=== PATIENT | female | born 1955 | race Caucasian/White ===

== ENCOUNTER 2021-04-04 08:18 | Outpatient (CLI) | payer OTHER | END 2021-04-04 23:59 | disposition home or self-care (01) | LOC: LAB 08:18 | PROVIDERS: ATTEND Specialist | DX: Z01.812 Encounter for preprocedural laboratory examination (principal); Z20.822 Contact with and (suspected) exposure to COVID-19 | CPT/HCPCS: C9803; U0003 ==

== ENCOUNTER 2021-04-10 04:42 | Inpatient (IN) | payer OTHER ==
[~2021-04-10] VITALS: Ht 160 cm; Wt 101.7 kg
[~2021-04-10 04:42] MED LIST: BUPIVACAINE 0.25% 75 MG/30 ML VIAL INFIL ONE; EPINEPHRINE (1:10,000) SYRINGE 1 MG/10 ML DISP.SYRIN IVP ONE
[2021-04-10 05:30] VITALS: BP 142/66
--- NOTE | 2021-04-10 05:30 | NUR ---
MSRN CAME FROM ADMITTING A 66 Y/O FEMALE FOR LEFT TOTAL KNEE ARTHROPLASTY TODAY BY DR. MICHEL. ALERT AND ORIENT X 4. LEVEL 4 PAIN ON LEFT KNEE. HAS BEEN NPO SINCE MIDNIGHT. VERY PLEASANT, ABLE TO PROVIDE HISTORY. SEEN BY DR ARMENTA AND DISCUSSED PAIN MGT. SEEN ALSO BY ANESTHESIOLOGIST . ALL CONSENTS SIGNED. ORIENTED TO [facility], PREOP TEACHING DONE.
[2021-04-10] MEDS ORDERED: ANESTHESIA TRAY IN PYXIS 1 EA TRAY MC ONE (05:49)
[2021-04-10] MEDS ORDERED: BUPIVACAINE 0.5 % PF 150 MG/30 ML VIAL ONE (05:49)
[2021-04-10] MEDS ORDERED: TRANEXAMIC ACID 3,000 MG in SODIUM CHLORIDE IRRIG SOLUTION 70 ML IR ONE (06:00)
--- NOTE | 2021-04-10 06:00 | NUR ---
MSRN OFF THE FLOOR TO OR VIA BED. OR TO START IV ACCESS.
[2021-04-10] MEDS ORDERED: HYDROMORPHONE INJ 2 MG/ML DISP.SYRIN ONE (06:17)
[2021-04-10] MEDS ORDERED: FENTANYL PF 250MCG/5ML AMPUL ONE (06:17)
[2021-04-10] MEDS ORDERED: MIDAZOLAM HCL 2 MG/2ML VIAL ONE (06:17)
[2021-04-10] MEDS ORDERED: SUCCINYLCHOLINE CHLORIDE 20 MG/ML VIAL ONE (06:18)
[2021-04-10] MEDS ORDERED: FAMOTIDINE/PF INJ 20 MG/2 ML VIAL IV ONE (06:18)
[2021-04-10] MEDS ORDERED: CLINDAMYCIN PHOSPHATE IV 600 MG/4 ML VIAL ONE (06:19)
[2021-04-10] MEDS ORDERED: oxyCODONE IR immediate release 5 MG PO PRN (06:30)
[2021-04-10] MEDS ORDERED: HYDROMORPHONE 1 MG/1 ML DISP.SYRIN SQ PRN (06:30)
[2021-04-10] MEDS ORDERED: CLONIDINE HCL 0.1 MG TABLET PO PRN (06:30)
[2021-04-10] MEDS ORDERED: MENTHOL/CETYLPYRD (CEPACOL) 1 LOZ LOZENGE PO PRN (06:30)
[2021-04-10] MEDS ORDERED: HYDROMORPHONE MDV 30 MG in IV NS 0.9% 15 ML, PCA TOTAL VOLUME 1 BAG IV PRN (06:30)
[2021-04-10] MEDS ORDERED: diphenhydrAMINE HCL 25 MG CAPSULE PO PRN (06:30)
[2021-04-10] MEDS ORDERED: ONDANSETRON HCL/PF 4 MG/2 ML VIAL IV PRN (06:30)
[2021-04-10] MEDS ORDERED: MAG HYDROX/AL HYDROX/SIMETH 30 ML UDC PO PRN (06:30)
[2021-04-10] MEDS ORDERED: ZOLPIDEM TARTRATE 5 MG TABLET PO PRN (11:00)
[2021-04-10] MEDS ORDERED: HYDROCODONE/APAP 5/325MG TABLET PO PRN (11:00)
[2021-04-10] MEDS ORDERED: SENNOSIDES 8.6 MG TABLET PO PRN (11:00)
[2021-04-10] MEDS ORDERED: DOCUSATE SODIUM 250 MG CAPSULE PO PRN (11:00)
[2021-04-10] MEDS ORDERED: CLINDAMYCIN 600 MG in IV D5W 50 ML IV SCH (11:00)
[2021-04-10] MEDS ORDERED: BISACODYL SUPP (10 MG) 10 MG/SUPP.RECT SUPP.RECT RC PRN (11:00)
[2021-04-10] MEDS ORDERED: ACETAMINOPHEN 325 MG TABLET PO PRN ×2 (11:00)
[2021-04-10] MEDS ORDERED: ONDANSETRON HCL/PF 4 MG/2 ML VIAL IVP PRN (11:00)
[2021-04-10] MEDS: DOCUSATE SODIUM 100 MG CAPSULE PO SCH ×2 (11:10→18:45)
[2021-04-10] MEDS: FAMOTIDINE (20 MG) 20 MG TABLET PO SCH ×2 (11:10→21:50)
[2021-04-10] MEDS ORDERED: IV NS 0.9% 1,000 ML IV PRN (11:30)
[2021-04-10] MEDS ORDERED: LABETALOL 20 MG/4 ML VIAL IV PRN (11:30)
--- NOTE | 2021-04-10 11:30 | NUR ---
RN NOTES RECEIVED PATIENT VIA GURNEY FROM OR. PATIENT ALERT AND ORIENTED TIMES 4. NO PAIN NOTED AT THIS TIME. RUTHERFORD CATHETER DRAINING WELL. LEFT KNEE SURGERY DONE. NO SOB NOTED.NO DISTRESS NOTED. VITAL SIGNS 105/82, P=103, ON O2 INHALATION VIA NASAL CANNULA @ 4L/MIN. T=98.6. ALL SAFETY MEASURES IN PLACE. BED IN THE LOWEST AND LOCKED POSITION. CALL LIGHT AND TABLE WITHIN REACH. WILL CONTINUE TO MONITOR THE PATIENT.
[2021-04-10] MEDS: IV D5/0.45 NACL 1,000 ML IV PRN (11:51)
[2021-04-10] MEDS: CLINDAMYCIN 600 MG in IV D5W 50 ML IV SCH ×2 (13:43→20:53)
[2021-04-10 16:00] VITALS: BP 102/56
[2021-04-10] MEDS ORDERED: KEY,NONCONTROL,TO KEEP IN PYXI 1 EA MC ONE ×2 (16:12→22:35)
--- NOTE | 2021-04-10 16:43 | NUR ---
RN NOTES 2PM CALLED FROM LAB REPORTED 4.4 LACTIC ACID RESULT[address] INFORMED [address]. FARFAN WITH NEW ORDER OF NS 1 LITER BOLUS. THEN NS 100ML/HR. NEW ORDER OF LACTIC ACID LAB AT 8PM
[2021-04-10] MEDS ORDERED: IV NS 0.9% 1,000 ML IV ONE ×3 (17:30→21:00)
[2021-04-10 17:38] LABS: BILIRUBIN,DIRECT 0.3 mg/dL (0.0-0.2); BILIRUBIN,TOTAL 0.5 mg/dL (0.2-1.0); CREATININE 1.3 mg/dL (0.6-1.3)
--- NOTE | 2021-04-10 19:00 | NUR ---
RN CLOSING NOTES PATIENT PATIENT ALERT AND ORIENTED TIMES 4. NO PAIN NOTED AT THIS TIME. RUTHERFORD CATHETER DRAINING WELL. LEFT KNEE SURGERY DONE. NO SOB NOTED.NO DISTRESS NOTED. VITAL SIGNS NORMAL.ON O2 INHALATION VIA NASAL CANNULA @ 4L/MIN. IV ACCESS ON THE LEFT HAND INTACT. ALL DUE MEDS GIVEN ORDERED.ALL SAFETY MEASURES IN PLACE. BED IN THE LOWEST AND LOCKED POSITION. CALL LIGHT AND TABLE WITHIN REACH. WILL ENDORSE FOR REECE.
--- NOTE | 2021-04-10 20:58 | NUR ---
RN NOTES 2029 PM RECEIVED CALLED FROM LAB REPORTED 4.0 LACTIC ACID RESULT[address] INFORMED [address]. BONNER WITH NEW ORDERD RECIVED AND CARRIED OUT. Addendum: 04/11/21 at 0441 by JORDIN BERG RN RN NOTES 2052 PM RECEIVED CALLED FROM LAB REPORTED 4.0 LACTIC ACID RESULT. INFORMED DR. BONNER WITH NEW ORDERD RECIVED AND CARRIED OUT.
--- NOTE | 2021-04-10 21:00 | NUR ---
RN NOTES: PLACED CALL TO DR. NAVA ABOUT PT. LACTIC ACID 4.0, ORDES RECIVED FOR LAB LACTIC ACID Q6HR FROM LAST LAB DRAW FOR LACTIC ACID ,AND CONTINUESLY NS 100 ML /HR CHARGE LAZARO MADE AWARE ,NEW ORDERS RECIVED AND CARRIED OUT.
[2021-04-10 22:00] VITALS: BP 107/61
[2021-04-10 23:00] VITALS: BP 117/69
[2021-04-11] MEDS: CLINDAMYCIN 600 MG in IV D5W 50 ML IV SCH (01:55)
[2021-04-11] MEDS ORDERED: METO25TA6 PO (04:40)
[2021-04-11] MEDS ORDERED: LOSA25TA27 PO (04:40)
[2021-04-11] MEDS ORDERED: METF-442 PO (04:40)
[2021-04-11] MEDS ORDERED: ROSU20TA32 PO (04:40)
[2021-04-11] MEDS ORDERED: FURO-145 PO (04:40)
[2021-04-11] MEDS: IV D5/0.45 NACL 1,000 ML IV PRN ×2 (05:40→23:15)
[2021-04-11 06:34] LABS: BASOPHILS % (AUTO) 0.1 % (0.0-2.0); EOSINOPHILS % (AUTO) 0.1 % (0.0-6.0); HEMATOCRIT 33 % (33-45); HEMOGLOBIN 11.1 g/dL (11.5-14.8); LYMPHOCYTES # (AUTO) 1.2 K/uL (0.8-4.8); LYMPHOCYTES % (AUTO) 6.9 % (20.0-44.0); MEAN CORPUSCULAR HGB CONC 34 g/dl (31.0-36.0); MEAN CORPUSCULAR VOLUME 89 fL (82-100); MONOCYTES % (AUTO) 5.7 % (2.0-12.0); NEUTROPHILS # (AUTO) 14.8 K/uL (1.8-8.9); NEUTROPHILS % (AUTO) 87.2 % (43.0-81.0); PLATELET COUNT (AUTO) 162 K/uL (150-450); RED BLOOD CELL COUNT(AUTO) 3.73 MIL/uL (4.0-5.2)
[2021-04-11 07:21] LABS: ALBUMIN 2.6 g/dL (3.4-5.0); BILIRUBIN,TOTAL 0.6 mg/dL (0.2-1.0); CALCIUM, SERUM 7.4 mg/dL (8.5-10.1); MAGNESIUM 1.6 mg/dL (1.8-2.4); PHOSPHORUS 3.5 mg/dL (2.5-4.9); POTASSIUM 3.9 mmol/L (3.5-5.1); TOTAL PROTEIN, SERUM 5.8 g/dL (6.4-8.2)
--- NOTE | 2021-04-11 07:30 | NUR ---
RN NOTES PATIENT ALERT AND ORIENTED TIMES 4. NO PAIN NOTED AT THIS TIME. RUTHERFORD CATHETER DRAINING WELL. LEFT KNEE SURGERY DONE. NO SOB NOTED.NO DISTRESS NOTED. INHALATION VIA NASAL CANNULA @ 4L/MIN. ALL SAFETY MEASURES IN PLACE. BED IN THE LOWEST AND LOCKED POSITION. CALL LIGHT AND TABLE WITHIN REACH. WILL CONTINUE TO MONITOR THE PATIENT.
[2021-04-11 08:00] VITALS: BP 117/50
[2021-04-11] MEDS ORDERED: ASPIRIN 325 MG TABLET PO SCH (09:00)
[2021-04-11] MEDS: DOCUSATE SODIUM 100 MG CAPSULE PO SCH ×2 (09:19→18:22)
[2021-04-11] MEDS: FAMOTIDINE (20 MG) 20 MG TABLET PO SCH ×2 (09:19→21:02)
[2021-04-11] MEDS ORDERED: HYDROCODONE/APAP 10/325MG TABLET PO ONE (09:47)
[2021-04-11] MEDS ORDERED: MAGNESIUM OXIDE 400 MG TABLET PO ONE (11:00)
[2021-04-11 16:00] VITALS: BP 105/61
[2021-04-11] MEDS: RIVAROXABAN 10 MG TABLET PO SCH (18:23)
--- NOTE | 2021-04-11 18:30 | NUR ---
RN CLOSING NOTES PATIENT PATIENT ALERT AND ORIENTED TIMES 4. NO PAIN NOTED AT THIS TIME. RUTHERFORD CATHETER DRAINING WELL. S/P OF LEFT KNEE SURGERY . NO SOB NOTED.NO DISTRESS NOTED. VITAL SIGNS NORMAL.ON O2 INHALATION VIA NASAL CANNULA @ 4L/MIN. IV ACCESS ON THE RIGHT FOREARM INTACT. ALL DUE MEDS GIVEN ORDERED.ALL SAFETY MEASURES IN PLACE. BED IN THE LOWEST AND LOCKED POSITION. CALL LIGHT AND TABLE WITHIN REACH. WILL ENDORSE FOR REECE.
--- NOTE | 2021-04-11 19:30 | NUR ---
RN OPENING NOTE PT AWAKE/ALERT, ABLE TO VERBALIZE ALL NEEDS. RESPIRATIONS EVEN/UNLABORED, ON O2 @2LPM VIA NC. PT S/P L-TOTAL KNEE ARTHROPLASTY ON 04/10/21. L-KNEE WITH DRESSING C/D/I. PT WITH CPM, NOT USED AT THIS TIME, PT STATES SHE HAS DONE IT 2X TODAY AND WILL DO IT AGAIN AFTER SHE HAS USED BR. PT PROVIDED WITH BEDSIDE COMMODE, ABLE TO TRANSFER SLOWLY WITH ASSIST PROVIDED. TOLERATED WELL. PT WITH F/C IN PLACE, DRAINING CLEAR YELLOW URINE. PT IN NO ACUTE DISTRESS. WILL CONT TO MONITOR.
[2021-04-11 20:00] VITALS: BP 116/73
--- NOTE | 2021-04-12 07:15 | NUR ---
RN CLOSING NOTE PT SLEEPING INTERMITTENTLY. NO RESPIRATORY DISTRESS. IV SITE ON RFA INTACT/PATENT. PT ON UPHOLSTERY AUTO TRIMMER AND PAIN IS WELL CONTROLLED. PT WITH NO BM YET, BUT STATES SHE'S ABLE TO PASS GAS. IV SITE ON RFA INTACT/PATENT, CONT ON D5 1/2 NS @125ML/HR. F/C TOTAL OUTPUT 2700ML THIS SHIFT. PT IN NO ACUTE DISTRESS. ALL NEEDS ATTENDED TO. SAFETY MEASURES MAINTAINED.
--- NOTE | 2021-04-12 07:30 | NUR ---
RN OPENING NOTE Patient in bed, awake. A/O x 4, able to make needs known. On O2 at 2 LPM, breathing evenly and unlabored. No SOB or s/s of distress noted. IV access on RFA #22G infusing D5 1/2 NS at 125 ml/hr. Pascal catheter in place draining to a yellow colored urine. Safety precautions in place: bed in low, locked position; siderails up x 2; call light within reach. Will continue to monitor.
[2021-04-12 07:31] LABS: BASOPHILS % (AUTO) 0.3 % (0.0-2.0); EOSINOPHILS % (AUTO) 1.4 % (0.0-6.0); HEMATOCRIT 31 % (33-45); HEMOGLOBIN 10.6 g/dL (11.5-14.8); LYMPHOCYTES # (AUTO) 1.5 K/uL (0.8-4.8); LYMPHOCYTES % (AUTO) 11.5 % (20.0-44.0); MEAN CORPUSCULAR HGB CONC 34 g/dl (31.0-36.0); MEAN CORPUSCULAR VOLUME 89 fL (82-100); MONOCYTES # (AUTO) 0.7 K/uL (0.1-1.30); NEUTROPHILS # (AUTO) 10.8 K/uL (1.8-8.9); NEUTROPHILS % (AUTO) 81.8 % (43.0-81.0); PLATELET COUNT (AUTO) 165 K/uL (150-450); RED BLOOD CELL COUNT(AUTO) 3.53 MIL/uL (4.0-5.2); WHITE BLOOD COUNT (AUTO) 13.2 K/uL (4.3-11.0)
[2021-04-12 07:47] LABS: CALCIUM, SERUM 7.6 mg/dL (8.5-10.1); CREATININE 0.9 mg/dL (0.6-1.3); POTASSIUM 3.4 mmol/L (3.5-5.1)
[2021-04-12 08:54] VITALS: BP 125/67
[2021-04-12] MEDS: FAMOTIDINE (20 MG) 20 MG TABLET PO SCH ×2 (09:24→20:22)
[2021-04-12] MEDS: DOCUSATE SODIUM 100 MG CAPSULE PO SCH ×2 (09:24→17:49)
[2021-04-12] MEDS: HYDROCODONE/APAP 10/325MG TABLET PO PRN ×2 (09:32→18:31)
--- NOTE | 2021-04-12 09:32 | NUR ---
RN NOTE Patient complained of pain on Left knee 8/10, PRN [place] given.
[2021-04-12] MEDS ORDERED: SENNOSIDES 8.6 MG TABLET PO ONE (09:58)
[2021-04-12] MEDS ORDERED: POTASSIUM CHLORIDE 20 MEQ TAB.PRT.SR PO ONE (10:00)
--- NOTE | 2021-04-12 10:30 | NUR ---
RN NOTE As per Tripp Braden, REIMBURSEMENT REPRESENTATIVE discontinue IV fluids. Patient can tolerate PO intake.
[2021-04-12] MEDS ORDERED: KEY,NONCONTROL,TO KEEP IN PYXI 1 EA MC ONE (11:11)
--- NOTE | 2021-04-12 11:46 | NUR ---
RN NOTE As per Dr. Springer, discontinue DIRECTOR OF DIRECT MARKETING pump. Took DIRECTOR OF DIRECT MARKETING pump barrow from [facility], disconnected DIRECTOR OF DIRECT MARKETING pump from patient. Wasted 24 ml of Dilaudid 30 mg IV, Eleuterio charge nurse as witness. DIRECTOR OF DIRECT MARKETING barrow returned to [facility].
[2021-04-12 16:16] VITALS: BP 115/58
[2021-04-12] MEDS: RIVAROXABAN 10 MG TABLET PO SCH (17:51)
--- NOTE | 2021-04-12 19:40 | NUR ---
RN CLOSING NOTE Patient in bed, awake. A/O x 4, able to make needs known. stable on room air, breathing evenly and unlabored. No SOB or s/s of distress noted. IV access on RFA #22G Sl, intact and patent. Pascal catheter in place draining to a yellow colored urine with an output of 1700 cc. All needs attended to. Due meds given. Safety precautions maintained: bed in low, locked position; siderails up x 2; call light within reach. Will endorse to retail shift supervisor nurse for REECE.
--- NOTE | 2021-04-12 19:58 | NUR ---
RN OPENING NOTES RECEIVED PT IN BED, AWAKE. AOx4. ON RA AND TOLERATING WELL. NO SOB NOTED. NO S/SX OF RESPIRATORY DISTRESS NOTED. IV ACCESS IN RFA #20G. IV IS INTACT, PATENT, AND FLUSHING WELL. NO COMPLAINTS OF PAIN AT THIS TIME. SAFETY PRECAUTIONS IN PLACE: BED IN LOWEST, LOCKED POSITION, SIDERAILS UPx2, AND BRAKES ON. TABLE AND CALL LIGHT WITHIN REACH. WILL CONTINUE TO MONITOR.
[2021-04-12 20:00] VITALS: BP 115/62
[2021-04-13] MEDS: HYDROCODONE/APAP 10/325MG TABLET PO PRN ×2 (04:44→10:39)
--- NOTE | 2021-04-13 07:13 | NUR ---
REPORT GIVEN TO RN. PATIENT IS STABLE.
[2021-04-13 07:22] LABS: BASOPHILS # (AUTO) 0.1 K/uL (0.0-0.2); BASOPHILS % (AUTO) 0.5 % (0.0-2.0); EOSINOPHILS % (AUTO) 2.6 % (0.0-6.0); HEMATOCRIT 33 % (33-45); HEMOGLOBIN 11.1 g/dL (11.5-14.8); LYMPHOCYTES # (AUTO) 1.5 K/uL (0.8-4.8); LYMPHOCYTES % (AUTO) 12.1 % (20.0-44.0); MEAN CORPUSCULAR HGB CONC 34 g/dl (31.0-36.0); MEAN CORPUSCULAR VOLUME 88 fL (82-100); MONOCYTES # (AUTO) 0.6 K/uL (0.1-1.30); MONOCYTES % (AUTO) 4.7 % (2.0-12.0); NEUTROPHILS # (AUTO) 9.7 K/uL (1.8-8.9); NEUTROPHILS % (AUTO) 80.1 % (43.0-81.0); PLATELET COUNT (AUTO) 201 K/uL (150-450); RED BLOOD CELL COUNT(AUTO) 3.73 MIL/uL (4.0-5.2); WHITE BLOOD COUNT (AUTO) 12.1 K/uL (4.3-11.0)
--- NOTE | 2021-04-13 07:26 | NUR ---
MS RN OPENING NOTES RECEIVED PT IN BED AWAKE, A/O x4. ABLE TO MAKE NEEDS KNOWN, DENIES PAIN AT THIS TIME. ON ROOM AIR, TOLERATING WELL WITH NO S/SX OF ACUTE RESPIRATORY DISTRESS NOTED. DRESSING ON LEFT KNEE C//D/I .IV ACCESS ON RFA #22G INTACT, PATENT, AND FLUSHING WELL. SAFETY PRECAUTIONS IN PLACED: BED IN LOWEST, LOCKED POSITION, SIDE-RAILS UPx2, BEDSIDE TABLE AND CALL LIGHT WITHIN REACH. WILL CONTINUE TO MONITOR PT ACCORDINGLY.
[2021-04-13 08:00] VITALS: BP 118/67
[2021-04-13] MEDS: FAMOTIDINE (20 MG) 20 MG TABLET PO SCH (08:17)
[2021-04-13] MEDS: DOCUSATE SODIUM 100 MG CAPSULE PO SCH ×2 (08:17→17:14)
[2021-04-13 08:27] LABS: CALCIUM, SERUM 8.6 mg/dL (8.5-10.1); MAGNESIUM 2.1 mg/dL (1.8-2.4); POTASSIUM 3.6 mmol/L (3.5-5.1)
--- NOTE | 2021-04-13 10:41 | NUR ---
RN NOTES PT C/O PAIN ON LEFT KNEE AFTER AMBULATING WITH PHYSICAL THERAPIST, PRN NORCO 10/325 MF PO ADMINISTERED AT 1039. WILL CONTINUE TO MONITOR AND REASSESS PT.
[2021-04-13] MEDS ORDERED: HYDROCODONE/APAP 5/325MG TABLET PO PRN (11:30)
--- NOTE | 2021-04-13 14:31 | NUR ---
RN NOTES RUTHERFORD CATHETER REMOVED WITH NO PROBLEM. 1,6OO ML CLEAR YELLOW URINE OUT PUT NOTED. WILL CONTINUE TO MONITOR.
[2021-04-13 16:00] VITALS: BP 133/69
[2021-04-13] MEDS: RIVAROXABAN 10 MG TABLET PO SCH (17:14)
--- NOTE | 2021-04-13 19:07 | NUR ---
MS RN CLOSING NOTES PT IN BED WATCHING TV AT THIS TIME. A/O x4. ABLE TO MAKE NEEDS KNOWN. PT ON ROOM AIR, TOLERATING WELL WITH NO S/SX OF ACUTE RESPIRATORY DISTRESS NOTED DURING SHIFT. DRESSING ON LEFT KNEE C//D/I WRAPPED WITH JATINDER BANDAGE. IV ACCESS ON RFA #22G INTACT, PATENT, AND FLUSHING WELL. ALL NEEDS AND CARE ATTENDED WELL. SAFETY PRECAUTIONS IN PLACED: BED IN LOWEST, LOCKED POSITION, SIDE-RAILS UPx2, BEDSIDE TABLE AND CALL LIGHT WITHIN REACH. PT FOR D/C TO [facility] TONIGHT, REPORT GIVEN VIA TELEPHONE EARLIER TO NURSE JUAN MIGUEL. ENDORSED TO HOT TOP LINER HELPER AURORA ANAND.
--- NOTE | 2021-04-13 19:53 | NUR ---
Patient discharged in stable condition at 1935 via ambulance accompanied by 2 director family. A&Ox4. RFA #22G in place because pt. is being transported to [facility]. Report given to AURORA Hi at [facility] from AM nurse. Skin intact except dressing t L knee surgical site c/d/i. Left will all paperwork and belongings. VS upon leaving B/P 131/62, HR 88, O2 sats 97%, RR 19, and temp 99.8.
[2021-04-14] MEDS ORDERED: ATORVASTATIN 40 MG TABLET PO SCH (09:00)
[2021-04-14] MEDS ORDERED: FUROSEMIDE 20 MG TABLET PO SCH (09:00)
[2021-04-25] MEDS ORDERED: ASPIRIN 325 MG TABLET PO SCH (09:00)
== END 2021-04-13 19:35 | DRG 470 ==
LOC: DS 04:42 → MED 04:43 → UNDOADMIN 04-12 08:43 → MED 04-12 08:43
PROVIDERS: ADMIT Specialist; ATTEND Specialist
PROC: 0SRD069 Replacement of Left Knee Joint with Oxidized Zirconium on Polyethylene Synthetic Substitute, Cemented, Open Approach (ICD-10-PCS; principal; 2021-04-10)
DX: M17.12 Unilateral primary osteoarthritis, left knee (principal); E87.2 Acidosis; D72.829 Elevated white blood cell count, unspecified; I25.10 Atherosclerotic heart disease of native coronary artery without angina pectoris; I10 Essential (primary) hypertension; E78.5 Hyperlipidemia, unspecified; Z88.0 Allergy status to penicillin; Z88.2 Allergy status to sulfonamides; E78.00 Pure hypercholesterolemia, unspecified; E66.01 Morbid (severe) obesity due to excess calories; Z95.5 Presence of coronary angioplasty implant and graft
CPT/HCPCS: 36415; 80048-TC; 80053-TC; 82247-TC; 82248-TC; 82565-TC; 82962-TC; 83605-TC; 83735-TC; 84100-TC; 85025-TC; 86850-TC; 88305-TC; 88311-TC; 93971-TC; 97116-TC; 97530-TC; 97760-TC; A4217; C1713; C1776; G0378; J0171; J0330; J1170; J2250; J2405; J2704; J2765; J3010; J3490; J7030; J7060; L1830

== ENCOUNTER 2021-04-24 16:01 | Emergency (ER) | payer OTHER ==
[~2021-04-24] VITALS: Ht 160 cm; Wt 97.1 kg
[~2021-04-24 16:01] MED LIST changes: -BUPIVACAINE 0.25% 75 MG/30 ML VIAL INFIL ONE; -EPINEPHRINE (1:10,000) SYRINGE 1 MG/10 ML DISP.SYRIN IVP ONE; +FURO-145 PO; +LOSA25TA27 PO; +METF-442 PO; +METO25TA6 PO; +ROSU20TA32 PO
[2021-04-24 16:22] VITALS: BP 124/73
--- NOTE | 2021-04-24 16:30 | NUR ---
BIBS FOR C/O LEFT KNEE AND LOWER LEG PAIN 11/01 AND SWELLING S/P L KNEE REPLACEMENT APR 10, [address] MICHEL. SENT BY DR MICHEL TO R/O DVT L LEG. RESPIRATION REGULAR AND UNLABORED. WILL CONTINUE TO MONITOR THE PATIENT.
--- NOTE | 2021-04-24 18:52 | NUR ---
Patient discharged to home in stable condition. Written and verbal after care instructions given. Patient verbalizes understanding of instruction.
== END 2021-04-24 18:53 | disposition home or self-care (01) ==
LOC: ER 16:24
DX: R60.0 Localized edema (principal); I10 Essential (primary) hypertension; E78.5 Hyperlipidemia, unspecified; E11.9 Type 2 diabetes mellitus without complications; Z88.0 Allergy status to penicillin; Z88.2 Allergy status to sulfonamides; Z88.1 Allergy status to other antibiotic agents; Z79.899 Other long term (current) drug therapy; Z79.84 Long term (current) use of oral hypoglycemic drugs
CPT/HCPCS: 93970-TC